=== PATIENT | female | born 1945 | race Caucasian/White ===

== ENCOUNTER 2017-02-17 21:00 | Inpatient (IN) | payer MEDICARE ==
[~2017-02-17] VITALS: Ht 157.5 cm; Wt 88.9 kg
[~2017-02-17 21:00] MED LIST: CORDARONE/200 MG/TAB PO; DEPAKOTE250 MG PO; DIGOXIN0.125 MG PO; DIVALPROEX250 M1; DIVALPROEX250 M1 PO; FLUARIX QUADRIV1 IN1 IM; FLUARIX QUADRIV1 INJ IM; KENALOG-4040 MG/ML IM; LIPITOR10 M1 PO; LISINOPRIL10 MG PO; LISINOPRIL5 MG PO; MELOXICAM15 MG; METO50TA52 PO; METOPROLOL100 M1; METOPROLOL100 M1 PO; MULTIVITAMI1 PO; MYLANT1 PO; NABUMETONE750 MG PO; OMEPRAZOLE40 MG PO; PLAVIX75 MG; PLAVIX75 MG PO; SINGULAIR10 MG; SINGULAIR10 MG PO; TRAMADOL HCL50 MG PO; VENTOLIN HFA; VENTOLIN HFA IN; XARELTO20 MG PO
[2017-02-17 21:30] LABS: HEMATOCRIT 47.2 % (37.0-47.0); HEMOGLOBIN 15.4 g/dl (12.0-16.0); IMMATURE GRANULOCYTES 0.3 % (0.0-1.0); MEAN CELL VOLUME 94.8 fL CALC (80.0-100.0); MEAN CORPUSCULAR HGB 30.9 pG CALC (26.0-32.0); MEAN CORPUSCULAR HGB CONC 32.6 g/L CALC (32.0-36.0); NEUT# 7.58 thou/uL (2.00-7.15); RED BLOOD COUNT 4.98 mill/uL (4.20-5.60); RED CELL DISTRI WIDTH 13.3 % (11.5-15.5)
[2017-02-17] MEDS ORDERED: ATORVASTATIN CA20 MG PO (21:31)
[2017-02-17] MEDS ORDERED: LISINOPRIL10 M1 PO (21:33)
[2017-02-17] MEDS ORDERED: DEPAKOTE250 MG PO (21:35)
[2017-02-17] MEDS ORDERED: GLIPIZIDE5 M2 PO (21:41)
[2017-02-17] MEDS ORDERED: METFORMIN500 M2 PO (21:41)
[2017-02-17 21:56] LABS: ALBUMIN 4.7 g/dL (3.2-5.0); ALKALINE PHOSPHATASE 51 u/l (38-126); ANION GAP 21 (6-22 (CALC)); BILIRUBIN, TOTAL 0.6 mg/dL (0.0-1.4); BUN 20 mg/dL (8-23); BUN/CREATININE RATIO 29 (12-20 (CALC)); CALCIUM 9.5 mg/dL (8.4-10.2); CARBON DIOXIDE 25 mmol/l (22-30); CHLORIDE 103 mmol/l (95-108); CREATININE 0.7 mg/dL (0.5-1.0); GFR > 60 ML/MIN (>=60 (CALC)); GFR FOR AFR.AMER. > 60 ML/MIN (>=60 (CALC)); GLUCOSE 203 mg/dL (82-115); POTASSIUM 5.1 mmol/l (3.5-5.1); SGOT/AST 28 u/l (9-36); SGPT/ALT 33 u/l (11-66); SODIUM 144 mmol/l (137-146); TOTAL PROTEIN 7.8 g/dL (6.3-8.2)
[2017-02-17 22:08] LABS: MYOGLOBIN 26 ng/mL (0 - 62)
[2017-02-17 23:15] VITALS: BP 125/76
[2017-02-17 23:30] VITALS: BP 110/76
[2017-02-17 23:45] VITALS: BP 116/75
[2017-02-17 23:55] LABS: URINE BILIRUBIN - DIPSTICK NEGATIVE (NEGATIVE); URINE BLOOD DIPSTICK NEGATIVE (NEGATIVE); URINE CLARITY CLEAR; URINE COLOR YELLOW; URINE GLUCOSE - DIPSTICK 250 mg/dL (NEGATIVE); URINE KETONE 15 mg/dL (NEGATIVE); URINE LEUK ESTERASE NEGATIVE (NEGATIVE); URINE NITRITE - DIPSTICK NEGATIVE (Negative); URINE PROTEIN - DIPSTICK NEGATIVE (NEG-TRACE); URINE SPECIFIC GRAVITY 1.025; URINE UROBILINOGEN - DIPSTICK 0.2 E.U./dL (0.2)
[2017-02-18] VITALS (24 sets, daily range): BP systolic 94–127; BP diastolic 53–98
[2017-02-18 09:21] LABS: HEMOGLOBIN 13.8 g/dl (12.0-16.0); IMMATURE GRANULOCYTES 0.2 % (0.0-1.0); MEAN CELL VOLUME 95.2 fL CALC (80.0-100.0); MEAN CORPUSCULAR HGB 31.3 pG CALC (26.0-32.0); MEAN CORPUSCULAR HGB CONC 32.9 g/L CALC (32.0-36.0); NEUT# 3.92 thou/uL (2.00-7.15); RED BLOOD COUNT 4.41 mill/uL (4.20-5.60); RED CELL DISTRI WIDTH 13.6 % (11.5-15.5)
[2017-02-18 09:52] LABS: ANION GAP 17 (6-22 (CALC)); BUN 19 mg/dL (8-23); BUN/CREATININE RATIO 33 (12-20 (CALC)); CALCIUM 9.3 mg/dL (8.4-10.2); CARBON DIOXIDE 25 mmol/l (22-30); CHLORIDE 102 mmol/l (95-108); CREATININE 0.6 mg/dL (0.5-1.0); GFR > 60 ML/MIN (>=60 (CALC)); GFR FOR AFR.AMER. > 60 ML/MIN (>=60 (CALC)); GLUCOSE 176 mg/dL (82-115); POTASSIUM 4.4 mmol/l (3.5-5.1); SODIUM 140 mmol/l (137-146)
[2017-02-19] VITALS (13 sets, daily range): BP systolic 86–114; BP diastolic 50–81
[2017-02-19 04:41] LABS: HEMATOCRIT 41.7 % (37.0-47.0); HEMOGLOBIN 13.6 g/dl (12.0-16.0); IMMATURE GRANULOCYTES 0.4 % (0.0-1.0); MEAN CELL VOLUME 95.2 fL CALC (80.0-100.0); MEAN CORPUSCULAR HGB 31.1 pG CALC (26.0-32.0); MEAN CORPUSCULAR HGB CONC 32.6 g/L CALC (32.0-36.0); NEUT# 5.64 thou/uL (2.00-7.15); RED BLOOD COUNT 4.38 mill/uL (4.20-5.60); RED CELL DISTRI WIDTH 13.9 % (11.5-15.5)
[2017-02-19 04:55] LABS: ALBUMIN 3.9 g/dL (3.2-5.0); ALKALINE PHOSPHATASE 50 u/l (38-126); ANION GAP 13 (6-22 (CALC)); BILIRUBIN, TOTAL 0.7 mg/dL (0.0-1.4); BUN 23 mg/dL (8-23); BUN/CREATININE RATIO 32 (12-20 (CALC)); CALCIUM 9.4 mg/dL (8.4-10.2); CARBON DIOXIDE 26 mmol/l (22-30); CHLORIDE 104 mmol/l (95-108); CREATININE 0.7 mg/dL (0.5-1.0); GFR > 60 ML/MIN (>=60 (CALC)); GFR FOR AFR.AMER. > 60 ML/MIN (>=60 (CALC)); GLUCOSE 113 mg/dL (82-115); POTASSIUM 4.9 mmol/l (3.5-5.1); SGOT/AST 20 u/l (9-36); SGPT/ALT 37 u/l (11-66); SODIUM 138 mmol/l (137-146); TOTAL PROTEIN 6.4 g/dL (6.3-8.2)
[2017-02-20 00:15] VITALS: BP 119/72
[2017-02-20 04:40] VITALS: BP 98/68
[2017-02-20 05:50] LABS: HEMATOCRIT 42.2 % (37.0-47.0); HEMOGLOBIN 13.9 g/dl (12.0-16.0); IMMATURE GRANULOCYTES 0.4 % (0.0-1.0); MEAN CELL VOLUME 94.2 fL CALC (80.0-100.0); MEAN CORPUSCULAR HGB CONC 32.9 g/L CALC (32.0-36.0); NEUT# 4.16 thou/uL (2.00-7.15); RED BLOOD COUNT 4.48 mill/uL (4.20-5.60); RED CELL DISTRI WIDTH 13.8 % (11.5-15.5)
[2017-02-20 06:17] LABS: ALBUMIN 4.2 g/dL (3.2-5.0); ALKALINE PHOSPHATASE 51 u/l (38-126); ANION GAP 16 (6-22 (CALC)); BUN 19 mg/dL (8-23); BUN/CREATININE RATIO 28 (12-20 (CALC)); CALCIUM 9.7 mg/dL (8.4-10.2); CARBON DIOXIDE 24 mmol/l (22-30); CHLORIDE 105 mmol/l (95-108); CREATININE 0.7 mg/dL (0.5-1.0); GFR > 60 ML/MIN (>=60 (CALC)); GFR FOR AFR.AMER. > 60 ML/MIN (>=60 (CALC)); GLUCOSE 108 mg/dL (82-115); POTASSIUM 4.8 mmol/l (3.5-5.1); SGOT/AST 21 u/l (9-36); SGPT/ALT 34 u/l (11-66); SODIUM 140 mmol/l (137-146); TOTAL PROTEIN 6.8 g/dL (6.3-8.2)
[2017-02-20 07:30] VITALS: BP 117/82
[2017-02-20 07:46] VITALS: BP 117/82
[2017-02-20] MEDS ORDERED: CORDARONE/200 MG/TAB PO (08:42)
[2017-02-20] MEDS ORDERED: LANOXIN0.125 MG PO (08:42)
[2017-02-20] MEDS ORDERED: LIPITOR10 M1 PO (08:43)
[2017-02-20] MEDS ORDERED: LOPRESSOR 550 MG/TAB PO (08:43)
[2017-02-20] MEDS ORDERED: DIGOXIN0.125 MG PO (08:43)
[2017-02-20] MEDS ORDERED: METOPROL TAR100 MG PO (08:44)
== END 2017-02-20 09:47 | disposition home or self-care (01) | DRG 310 ==
LOC: ENPENDDIS → ED 21:00 → ED-I 22:10 → ED 22:41 → ICU 22:42 → MS2 02-19 12:40
PROVIDERS: Emergency Medicine; ADMIT Internal Medicine Geriatric Medicine; ATTEND Internal Medicine Geriatric Medicine
PROC: 3E0234Z Introduction of Serum, Toxoid and Vaccine into Muscle, Percutaneous Approach (ICD-10-PCS; principal; 2017-02-18)
DX: I48.2 Chronic atrial fibrillation (principal); I10 Essential (primary) hypertension; I25.10 Atherosclerotic heart disease of native coronary artery without angina pectoris; E11.9 Type 2 diabetes mellitus without complications; F41.9 Anxiety disorder, unspecified; Z79.01 Long term (current) use of anticoagulants; Z86.73 Personal history of transient ischemic attack (TIA), and cerebral infarction without residual deficits; Z23 Encounter for immunization

== ENCOUNTER 2018-03-06 10:35 | Day surgery (SDC) | payer MEDICARE ==
[~2018-03-06] VITALS: Ht 157.5 cm; Wt 93.4 kg
[~2018-03-06 10:35] MED LIST changes: +ASPIRIN81 MG PO; +ATORVASTATIN CA20 MG PO; +GLIPIZIDE5 M2 PO; +LANOXIN0.125 MG PO; +LISINOPRIL10 M1 PO; +LOPRESSOR 550 MG/TAB PO; +METFORMIN500 M2 PO; +METOPROL TAR100 MG PO; +ZOLPIDEM10 M1 PO
[2018-03-06 13:22] VITALS: BP 102/51
== END 2018-03-06 13:30 | disposition home or self-care (01) ==
LOC: ENDO 10:35 → ORM 13:45
PROVIDERS: ATTEND Internal Medicine Gastroenterology
PROC: 0DBE8ZX Excision of Large Intestine, Via Natural or Artificial Opening Endoscopic, Diagnostic (ICD-10-PCS; principal; 2018-03-06)
DX: R19.7 Diarrhea, unspecified (principal); K63.5 Polyp of colon; K57.30 Diverticulosis of large intestine without perforation or abscess without bleeding; K64.4 Residual hemorrhoidal skin tags; K64.8 Other hemorrhoids; I10 Essential (primary) hypertension; E11.9 Type 2 diabetes mellitus without complications; E78.00 Pure hypercholesterolemia, unspecified; Z86.73 Personal history of transient ischemic attack (TIA), and cerebral infarction without residual deficits; Z86.010 Personal history of colon polyps

== ENCOUNTER → 2019-01-13 | Outpatient (REF) | payer MEDICARE ==
[2019-01-13 09:49] LABS: HEMATOCRIT 41.8 % (37.0-47.0); HEMOGLOBIN 13.6 g/dl (12.0-16.0); IMMATURE GRANULOCYTES 0.3 % (0.0-5.0); MEAN CELL VOLUME 94.8 fL CALC (80.0-100.0); MEAN CORPUSCULAR HGB 30.8 pG CALC (26.0-32.0); MEAN CORPUSCULAR HGB CONC 32.5 g/L CALC (32.0-36.0); NEUT# 2.84 thou/uL (2.00-7.15); RED BLOOD COUNT 4.41 mill/uL (4.20-5.60)
[2019-01-13 11:58] LABS: ALBUMIN 4.4 g/dL (3.2-5.0); ALKALINE PHOSPHATASE 60 u/l (38-126); ANION GAP 15 (6-22 (CALC)); BILIRUBIN, TOTAL 0.8 mg/dL (0.0-1.4); BUN 19 mg/dL (8-23); BUN/CREATININE RATIO 30 (12-20 (CALC)); CALCULATED LDLCHOLESTEROL 48 mg/dL (62-129 (CALC)); CARBON DIOXIDE 30 mmol/l (22-30); CHLORIDE 100 mmol/l (95-108); CHOLESTEROL HDL RATIO 3.6 (<4.4 (CALC)); CREATININE 0.6 mg/dL (0.5-1.0); GFR > 60 ML/MIN (>=60 (CALC)); GFR FOR AFR.AMER. > 60 ML/MIN (>=60 (CALC)); HDL CHOLESTEROL 33 mg/dL (>=40); POTASSIUM 4.7 mmol/l (3.5-5.1); SGOT/AST 21 u/l (9-36); SODIUM 140 mmol/l (137-146); TOTAL CHOLESTEROL 120 mg/dl (0-199); TOTAL PROTEIN 6.9 g/dL (6.3-8.2); TRIGLYCERIDES REFLEX TO dLDL 194 mg/dl (30-149); VLDL CHOLESTROL 39 mg/dl (0-48 (CALC))
== END | disposition home or self-care (01) ==
LOC: LAB 07:51
PROVIDERS: ATTEND Internal Medicine Geriatric Medicine
DX: I10 Essential (primary) hypertension (principal); E11.9 Type 2 diabetes mellitus without complications

== ENCOUNTER 2021-12-25 08:36 | Day surgery (SDC) | payer MEDICARE ==
[~2021-12-25] VITALS: Ht 157.5 cm; Wt 78.0 kg
[~2021-12-25 08:36] MED LIST changes: +LISINOPRIL2.5 MG PO; +MAGNESIUM 400 M1 TAB PO; +OMEPRAZOLE DR20 MG PO; +TOPROL XL100 MG PO; +VITAMIN C500 M5 PO; +VITAMIN D32000 UNI2 PO
[2021-12-25] MEDS ORDERED: OMEPRAZOLE20 MG PO (10:35)
[2021-12-25 11:18] VITALS: BP 120/59
== END 2021-12-25 11:15 | disposition home or self-care (01) ==
LOC: ENDO 08:36 → ORM 11:45
PROVIDERS: ATTEND Surgery
PROC: 0DJ08ZZ Inspection of Upper Intestinal Tract, Via Natural or Artificial Opening Endoscopic (ICD-10-PCS; principal; 2021-12-25)
DX: K44.9 Diaphragmatic hernia without obstruction or gangrene (principal); K21.9 Gastro-esophageal reflux disease without esophagitis; I10 Essential (primary) hypertension; I48.91 Unspecified atrial fibrillation; E78.5 Hyperlipidemia, unspecified; I25.10 Atherosclerotic heart disease of native coronary artery without angina pectoris; Z95.810 Presence of automatic (implantable) cardiac defibrillator; Z95.5 Presence of coronary angioplasty implant and graft